=== PATIENT | female | born 1950 | race Caucasian/White ===

== ENCOUNTER → 2018-01-03 08:47 | Outpatient (CLI) | payer MEDICARE, OTHER, SELFPAY ==
--- NOTE | 2018-01-03 09:47 | RAD_ITS ---
STUDY: X-RAY - ABDOMEN/PELVIS REASON FOR EXAM: Female, 67 years old. Ulcerative colitis. Colostomy. TECHNIQUE: Two AP supine views of the abdomen and pelvis. COMPARISON: Comparison is made with prior study dated October 24, 2017. FINDINGS: Normal visualized lung bases. There is an unremarkable bowel gas pattern. Surgical clips and ostomy are seen in the right lower quadrant. Stable tiny calcifications in the upper mid portions of the left kidney. Normal soft tissue structures. There are diffuse degenerative changes of the visualized lumbar spine. RAD/Abdomen Single View IMPRESSION: No acute abnormality is seen. Stable examination. Electronically Signed: Tiburcio Tang MD at 20:02 EST Tel [phone], Service support ,
== END ==
PROVIDERS: Family Provider Nurse Practitioner Primary Care; PCP Nurse Practitioner Primary Care; Visit Provider Urology
DX: N20.0 Calculus of kidney (principal)
CPT/HCPCS: 74018

== ENCOUNTER → 2018-10-09 08:32 | Outpatient (CLI) | payer MEDICARE, OTHER, SELFPAY ==
--- NOTE | 2018-10-09 08:41 | RAD_ITS ---
STUDY: X-RAY - ABDOMEN/PELVIS REASON FOR EXAM: Female, 68 years old. History of kidney stones for follow-up. TECHNIQUE: AP supine abdomen. COMPARISON: 01/03/2018. 10/24/2017. FINDINGS: Normal visualized lung bases. There is an unremarkable bowel gas pattern. There is no demonstrated free abdominal air. The visualized liver, spleen and kidneys are grossly normal in size and morphology. Normal soft tissue structures. Degenerative changes of the lower lumbar spine. Sutures in the mid pelvis. Ostomy right lower quadrant. Phlebolith left hemipelvis inferior to the left sacroiliac joint unchanged. No urinary tract stones identified. Small stones could easily be obscured by overlying bowel gas and stool.. RAD/Abdomen Single View IMPRESSION: No urinary tract stones identified. Nonspecific bowel gas pattern without evidence of obstruction. Electronically Signed: Jacob Hector MD at 5:55 EST , Service support ,
== END ==
PROVIDERS: Family Provider Nurse Practitioner Primary Care; PCP Nurse Practitioner Primary Care; Referring Provider Urology; Visit Provider Urology
DX: N20.0 Calculus of kidney (principal)
CPT/HCPCS: 74018